=== PATIENT | male | born 1945 | race Caucasian/White ===

== ENCOUNTER → 2023-07-31 11:45 | Outpatient (REF) | payer OTHER, SELFPAY | LOC: PAVMRI 11:45 | PROVIDERS: ATTENDING PHYSICIAN Otolaryngology; FAMILY PHYSICIAN Family Medicine | DX: H93.19 Tinnitus, unspecified ear (principal) | CPT/HCPCS: 70553; A9575 ==

== ENCOUNTER → 2024-04-18 06:40 | Day surgery (SDC) | payer OTHER, SELFPAY | LOC: GI 06:40 | PROVIDERS: ATTENDING PHYSICIAN Internal Medicine | DX: Z12.11 Encounter for screening for malignant neoplasm of colon (principal); K64.9 Unspecified hemorrhoids; K57.30 Diverticulosis of large intestine without perforation or abscess without bleeding; Z86.0100 Personal history of colon polyps, unspecified | CPT/HCPCS: G0105 ==

== ENCOUNTER 2024-05-12 18:25 | Emergency (ER) | payer OTHER, SELFPAY ==
[2024-05-12] VITALS (20 sets, daily range): BP systolic 121–153; BP diastolic 56–77; BMI 25.8
[2024-05-12] MEDS: DILAUDID 0.5 MG IV (18:38)
--- NOTE | 2024-05-12 18:40 | ED.MUSCINJ ---
HPI-Injury
<Evaristo Tinoco PA-C - Last Filed: 05/12/24 20:13>
General
Chief Complaint: Musculo-Skeletal Complaint
Source: patient
Exam Limitations: none
Time Seen by Provider: 05/12/24 18:27
History of Present Illness-Injury
Initial Injury comments:
78-year-old male presents via EMS from home with complaints of left hip pain. He states he bent over and felt a pop in his left hip. Since then he has been unable to bear weight. He feels a deformity. He had his left hip replaced couple years
ago. No prior dislocations. No other
Phy Exam
<Evaristo Tinoco PA-C - Last Filed: 05/12/24 20:13>
Physical Exam
Physical Exam:
General: Uncomfortable appearing male no acute respiratory distress
HEENT: Normocephalic atraumatic
Musculoskeletal exam: Left leg is shortened. There is a deformity noted on the lateral aspect of the hip. He is tender on the lateral hip.
Vascular: 2+ dorsalis pedis pulse left foot
Injury Course
<Evaristo Tinoco PA-C - Last Filed: 05/12/24 20:13>
Orders/Labs/Results
Orders:
Orders
05/12/24 18:33
HYDROmorphone [Dilaudid] 0.5 mg .ROUTE .STK-MED ONE
05/12/24 18:36
CR Hip - LT without Pel 1 Vw Urgent
Comment:
Reason For Exam: dislocation
05/12/24 18:38
HYDROmorphone [Dilaudid] 0.5 mg IV NOW STA
05/12/24 18:59
Propofol [Diprivan] 20 ml .ROUTE .STK-MED
05/12/24 19:23
CR Hip - LT without Pel 1 Vw Stat
Comment:
Reason For Exam: post reduction
<Jani Reagan, DO - Last Filed: 05/12/24 19:23>
Orders/Labs/Results
Orders:
Orders
05/12/24 18:33
HYDROmorphone [Dilaudid] 0.5 mg .ROUTE .STK-MED ONE
05/12/24 18:36
CR Hip - LT without Pel 1 Vw Urgent
Comment:
Reason For Exam: dislocation
05/12/24 18:38
HYDROmorphone [Dilaudid] 0.5 mg IV NOW STA
05/12/24 18:59
Propofol [Diprivan] 20 ml .ROUTE .STK-MED
05/12/24 19:23
CR Hip - LT without Pel 1 Vw Stat
Comment:
Reason For Exam: post reduction
Procedures
<Jani Reagan, DO - Last Filed: 05/12/24 19:23>
Moderate Sedation
ASA Risk Score: Class II
Chart and allergies reviewed: Yes
Consent for anesthesia obtained: Yes
Time out completed (validating right patient & procedure): Yes
Moderate Sedation Start Time(when first medication is given): 19:17
History of difficult intubation: No
Airway free of obstruction: Yes
Patient has a gag reflex: Yes
Patient is able to open mouth: Yes
Patient has no dentures: No
Patient has no loose teeth: Yes
Medication administered by Provider during Moderate Sedation: IV Propofol (mg)
Total dose administered: 75
Time drug administered: 19:17
Moderate Sedation Procedure End Time: 19:30
Comment: Time out at 1913
Joint/Fracture Reduction
Left Posterior Lateral Hip:
Indication for procedure:: Left Hip dislocation
Procedure completed by: Дмитрий Tinoco PA-C
Consent form signed: Yes
Joint reduced: with anesthesia sedation
Injury was: closed
Further treatement: needs re-check only
Post reduction exam: stable
Capillary Refill: normal
Normal distal neurovascular exam?: Yes
Peripheral Pulses: posterior tibial (left): 2+ and dorsalis pedis (left): 2+
<Evaristo Tinoco PA-C - Last Filed: 05/12/24 20:13>
MDM/Problems Addressed
Differential Diagnosis Includes:
Left hip pain after bending over and feeling a pop. Consider dislocation versus fracture versus strain
X-rays pending
<Evaristo Tinoco PA-C - Last Filed: 05/12/24 20:13>
*Critical Care Note
Total Time (30-74mins, 75-104mins- exclusive of procedures): Not Applicable
<Evaristo Tinoco PA-C - Last Filed: 05/12/24 20:13>
Update Note
Update Note:
Initial x-ray demonstrated that he superior hip dislocation. Written consent was obtained for moderate sedation and closed reduction left hip. Sedation performed by emergency room attending. The hip was reduced with hip flexion and longitudinal
traction with internal rotation. This reduced easily. Postreduction films demonstrated successful reduction. Knee immobilizer applied he was recovered from the sedation picked up by family member and discharged home
ED Attending Note
<Evaristo Tinoco PA-C - Last Filed: 05/12/24 20:13>
-
Portions of this chart may have been created with voice recognition software.� Occasional wrong word or��sound alike� substitutions may have occurred due to the inherent limitations of voice recognition software.
<Jani Reagan DO - Last Filed: 05/12/24 19:23>
ED Attending Note
Patient seen and examined by attending physician: Yes
I performed the substantive portion of visit, reviewed & personally made and approve the management plan that is documented in note by myself or JACINDA.: Yes
ED Attending Note:
I have seen and evaluated the patient with a [id number] encounter. I have spoken to the advance practicer provider and involved in the medical history, the physical exam, medical decision making.
Evaluation and management service: agree unless noted differently below.
Results interpretation: agree unless noted differently below.
Focused HPI: 78-year-old male presenting with dislocated left hip. This occurred when he was bending over. Patient states the hip was done 2 years
Physical exam: Mildly uncomfortable. Left hip in a flexed position. It is neurovascularly intact
Medical Decision Making: Given the dislocated hip, patient signed consent for moderate sedation and reduction.
Discharge Plan
Departure
Patient Disposition: Home (Routine Discharge)
Date of Disposition: 05/12/24
Time of Disposition: 20:12
Patient with high blood pressure during this ER visit?: No
Discharge Problem:
Dislocation of left hip
Instructions: Hip Dislocation (DC), MODERATE SEDATION ADULT
Prescriptions:
No Action
loratadine-pseudoephedrine 240 MG/10 MG tablet extended release 24 hr
1 tab PO DAILY
omeprazole 20 MG capsule,delayed release(DR/EC)
20 mg PO DAILY
tadalafil [Cialis] 5 MG tablet
5 mg PO DAILY
hydrocodone-acetaminophen 1 TABLET tablet
1 tab PO Q6HPRN PRN (Reason: moderate-severe pain) Qty: 30 0RF
Rx Instructions:
Dx total joint replacement
ongoing therapy
1 tab moderate pain or 2 if pain severe
celecoxib 200 MG capsule
200 mg PO DAILY Qty: 30 0RF
Rx Instructions:
Take with food.
Do not take within 2 hours of Aspirin post-op.
ondansetron HCl 4 MG tablet
4 mg PO Q6HPRN PRN (Reason: nausea) Qty: 20 0RF
Rx Instructions:
Take 1/2 hour prior to [place] if experiencing recurrent nausea.
mupirocin 1 APPLIC ointment
1 applic intranasal BID Qty: 1 0RF
Patient Comments:
last dose was 02/13
acetaminophen 325 MG tablet
650 mg PO Q4HPRN PRN (Reason: mild pain) Qty: 60 0RF
Rx Instructions:
Do not exceed >4000 mg daily while on [place].
1 [place] tab = 325 mg of Tylenol.
docusate sodium 100 MG capsule
100 mg PO BID Qty: 30 0RF
sennosides [senna] 8.6 MG capsule
8.6 mg PO BID Qty: 30 0RF
magnesium hydroxide 30 ML suspension
30 ml PO HSPRN PRN (Reason: constipation) Qty: 7 0RF
Rx Instructions:
Use as needed for constipation unrelieved by Colace and Sennokot.
aspirin 325 MG tablet
325 mg PO DAILY Qty: 0 0RF
Patient Comments:
325 mg Aspirin
Rx Instructions:
Take 325 mg daily x4 weeks for blood clot prevention.
losartan 25 MG tablet
50 mg PO DAILY Qty: 0 0RF
Rx Instructions:
Hold if systolic blood pressure <130 while on [place].
Activity Restrictions/Additional Instructions:
Use the brace when ambulating. Follow-up with your orthopedic doctor. Return if needed
Interventions
Interventions:
*Risk Screen - Suicide Last Done: 05/12/24 18:35
*General Assessment Last Done: 05/12/24 18:35
*Neglect/Abuse Screening Last Done: 05/12/24 18:35
ED- Fall Risk Assessment Last Done: 05/12/24 18:51
*ED COVID-19 Vaccine History Last Done: 05/12/24 18:29
ED-Musculoskeletal Assessment Last Done: 05/12/24 18:51
Discharge Date and Time
Print Language: DIVEHI
== END 2024-05-12 20:31 | disposition home or self-care (01) ==
LOC: EMR 18:25
PROVIDERS: EMERGENCY PHYSICIAN Student in an Organized Health Care Education/Training Program; FAMILY PHYSICIAN Family Medicine
DX: T84.021A Dislocation of internal left hip prosthesis, initial encounter (principal); Y79.2 Prosthetic and other implants, materials and accessory orthopedic devices associated with adverse incidents
CPT/HCPCS: 27265; 99152; 99285; 96374; 73501

== ENCOUNTER 2024-11-21 16:27 | Emergency (ER) | payer OTHER, SELFPAY ==
[2024-11-21] VITALS (15 sets, daily range): BP systolic 145–176; BP diastolic 78–104; BMI 27.1
--- NOTE | 2024-11-21 17:00 | ED.MUSCINJ ---
HPI-Injury
<Evaristo Tinoco PA-C - Last Filed: 11/21/24 18:56>
General
Chief Complaint: Musculo-Skeletal Complaint
Source: patient
Exam Limitations: none
Time Seen by Provider: 11/21/24 16:53
History of Present Illness-Injury
Initial Injury comments:
79-year-old male presents complaining of left hip pain. He states he bent over to untangle his dog's leash and he felt his hip pop. He has a history of left hip replacement. He has dislocated his hip once in the past and this feels very similar.
Brought here by EMS. No other complaints at this time
Phy Exam
<Evaristo Tinoco PA-C - Last Filed: 11/21/24 18:56>
Physical Exam
Physical Exam:
General: Well-appearing male no acute respiratory distress
HEENT: Normocephalic atraumatic
Musculoskeletal exam: Left hip is held in flexion and slight internal rotation
Vascular: 2+ DP pulse left foot
Neurologic: Good sensation left foot
Injury Course
<Evaristo Tinoco PA-C - Last Filed: 11/21/24 18:56>
Orders/Labs/Results
Orders:
Orders
11/21/24 16:57
CR Hip - LT without Pel 1 Vw Urgent
Comment:
Reason For Exam: dislocation
11/21/24 17:08
Morphine Sulfate 4 mg .ROUTE .STK-MED ONE
11/21/24 17:10
Morphine Sulfate 4 mg IV NOW STA
11/21/24 17:15
Propofol [Diprivan] 20 ml .ROUTE .STK-MED
11/21/24 17:51
CR Hip - LT without Pel 1 Vw Urgent
Comment:
Reason For Exam: post reduction
<Dimas Hensley MD - Last Filed: 11/21/24 18:13>
Orders/Labs/Results
Orders:
Orders
11/21/24 16:57
CR Hip - LT without Pel 1 Vw Urgent
Comment:
Reason For Exam: dislocation
11/21/24 17:08
Morphine Sulfate 4 mg .ROUTE .STK-MED ONE
11/21/24 17:10
Morphine Sulfate 4 mg IV NOW STA
11/21/24 17:15
Propofol [Diprivan] 20 ml .ROUTE .STK-MED
11/21/24 17:51
CR Hip - LT without Pel 1 Vw Urgent
Comment:
Reason For Exam: post reduction
Procedures
<Evaristo Tinoco PA-C - Last Filed: 11/21/24 18:56>
Moderate Sedation
ASA Risk Score: Class II
Chart and allergies reviewed: Yes
Consent for anesthesia obtained: Yes
Time out completed (validating right patient & procedure): Yes
Moderate Sedation Start Time(when first medication is given): 17:49
History of difficult intubation: No
Airway free of obstruction: Yes
Patient has a gag reflex: Yes
Patient is able to open mouth: Yes
Patient has no dentures: Yes
Patient has no loose teeth: Yes
Medication administered by Provider during Moderate Sedation: IV Propofol (mg)
Total dose administered: 100
Time drug administered: 17:49
Moderate Sedation Procedure End Time: 18:00
<Evaristo Tinoco PA-C - Last Filed: 11/21/24 18:56>
MDM/Problems Addressed
Differential Diagnosis Includes:
Left hip pain. Likely dislocation of prosthetic hip replacement. Consider fracture. X-rays pending
<Evaristo Tinoco PA-C - Last Filed: 11/21/24 18:56>
*Critical Care Note
Total Time (30-74mins, 75-104mins- exclusive of procedures): Not Applicable
<Evaristo Tinoco PA-C - Last Filed: 11/21/24 18:56>
Update Note
Update Note:
Initial x-rays demonstrated hip dislocation of the left side. Written consent obtained for moderate sedation and closed reduction. Moderate sedation performed by emergency room attending. Total of 100 mg of propofol were used which provided
adequate sedation. The hip was then reduced by myself using hip flexion longitudinal traction and internal rotation. A palpable was felt. Postreduction films were obtained which demonstrated successful reduction. The patient recovered from
anesthesia and was discharged home in the company of his friend.
ED Attending Note
<Evaristo Tinoco PA-C - Last Filed: 11/21/24 18:56>
-
Portions of this chart may have been created with voice recognition software.� Occasional wrong word or��sound alike� substitutions may have occurred due to the inherent limitations of voice recognition software.
<Dimas Hensley MD - Last Filed: 11/21/24 18:13>
ED Attending Note
Patient seen and examined by attending physician: Yes
ED Attending Note:
I have seen and evaluated the patient with a [id number] encounter. I have spoken to the advance practicer provider and involved in the medical history, the physical exam, medical decision making.
Evaluation and management service: agree unless noted differently below.
Results interpretation: agree unless noted differently below.
Focused HPI: 79-year-old male with history as noted presents for evaluation of left hip pain. Patient was bending over and felt hip pop out. 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
hip dislocation. EMS was called to bring her to the hospital, he was given fentanyl via IV from EMS.
Physical exam: Awake and alert, left leg is shortened and held in flexion; strong pulses throughout left lower extremity. No other signs of acute trauma.
Medical Decision Makin-year-old male presents with left hip pain consistent with prior dislocations. X-ray confirmed that he has a dislocation of his left hip prosthesis. Will plan for reduction under moderate sedation.
Dislocated hip was successfully reduced under sedation. Will observe status post rotation plan for discharge. Patient was placed in a knee immobilizer. Follow-up with orthopedist as an outpatient.
Discharge Plan
Departure
Patient Disposition: Home (Routine Discharge)
Date of Disposition: 11/21/24
Time of Disposition: 18:52
Patient with high blood pressure during this ER visit?: No
Discharge Problem:
Dislocation of hip, left, closed
Instructions: MODERATE SEDATION ADULT
Prescriptions:
No Action
loratadine-pseudoephedrine 240 MG/10 MG tablet extended release 24 hr
1 tab PO DAILY
omeprazole 20 MG capsule,delayed release(DR/EC)
20 mg PO DAILY
tadalafil [Cialis] 5 MG tablet
5 mg PO DAILY
hydrocodone-acetaminophen 1 TABLET tablet
1 tab PO Q6HPRN PRN (Reason: moderate-severe pain) Qty: 30 0RF
Rx Instructions:
Dx total joint replacement
ongoing therapy
1 tab moderate pain or 2 if pain severe
celecoxib 200 MG capsule
200 mg PO DAILY Qty: 30 0RF
Rx Instructions:
Take with food.
Do not take within 2 hours of Aspirin post-op.
ondansetron HCl 4 MG tablet
4 mg PO Q6HPRN PRN (Reason: nausea) Qty: 20 0RF
Rx Instructions:
Take 1/2 hour prior to [place] if experiencing recurrent nausea.
mupirocin 1 APPLIC ointment
1 applic intranasal BID Qty: 1 0RF
Patient Comments:
last dose was 02/13
acetaminophen 325 MG tablet
650 mg PO Q4HPRN PRN (Reason: mild pain) Qty: 60 0RF
Rx Instructions:
Do not exceed >4000 mg daily while on [place].
1 [place] tab = 325 mg of Tylenol.
docusate sodium 100 MG capsule
100 mg PO BID Qty: 30 0RF
sennosides [senna] 8.6 MG capsule
8.6 mg PO BID Qty: 30 0RF
magnesium hydroxide 30 ML suspension
30 ml PO HSPRN PRN (Reason: constipation) Qty: 7 0RF
Rx Instructions:
Use as needed for constipation unrelieved by Colace and Sennokot.
aspirin 325 MG tablet
325 mg PO DAILY Qty: 0 0RF
Patient Comments:
325 mg Aspirin
Rx Instructions:
Take 325 mg daily x4 weeks for blood clot prevention.
losartan 25 MG tablet
50 mg PO DAILY Qty: 0 0RF
Rx Instructions:
Hold if systolic blood pressure <130 while on [place].
Referrals:
Tali Antoine DO [Family Provider, Family Practice]
Activity Restrictions/Additional Instructions:
Please return here for worsening symptoms. Follow-up with your orthopedic doctor otherwise
Interventions
Interventions:
*Risk Screen - Suicide Last Done: 11/21/24 16:37
*General Assessment Last Done: 11/21/24 16:37
*Neglect/Abuse Screening Last Done: 11/21/24 16:37
*ED- Fall Risk Assessment Last Done: 11/21/24 16:37
*ED COVID-19 Vaccine History Last Done: 11/21/24 16:37
ED-Musculoskeletal Assessment Last Done: 11/21/24 16:37
Discharge Date and Time
Print Language: MONGOLIAN
[2024-11-21] MEDS: MORPHINE SULFATE 4 MG IV (17:12)
== END 2024-11-21 19:09 | disposition home or self-care (01) ==
LOC: EMR 16:27
PROVIDERS: EMERGENCY PHYSICIAN Emergency Medicine; FAMILY PHYSICIAN Family Medicine
DX: T84.021A Dislocation of internal left hip prosthesis, initial encounter (principal); X58.XXXA Exposure to other specified factors, initial encounter; M25.552 Pain in left hip; Z96.642 Presence of left artificial hip joint; Z79.82 Long term (current) use of aspirin
CPT/HCPCS: 99285; 27265; 96374; 99152; 73501

== ENCOUNTER 2024-12-21 09:19 | Emergency (ER) | payer OTHER, SELFPAY ==
[2024-12-21] VITALS (18 sets, daily range): BP systolic 103–174; BP diastolic 55–115; BMI 26.6
--- NOTE | 2024-12-21 09:34 | ED.MUSCINJ ---
HPI-Injury
<Evaristo Tinoco PA-C - Last Filed: 12/21/24 12:42>
General
Chief Complaint: Musculo-Skeletal Complaint
Source: patient
Exam Limitations: none
Time Seen by Provider: 12/21/24 09:25
History of Present Illness-Injury
Initial Injury comments:
79-year-old male with history of left hip replacement presents with left hip pain after bending over to clip his nails. He felt a pop similar to what he is felt in the past with prior dislocations. He was here 1 month ago for the same. He
followed up with orthopedics and has been doing physical therapy and has been doing well but he was just getting out of the shower clipping his nails and did not have his hip brace on at that time.
Phy Exam
<Evaristo Tinoco PA-C - Last Filed: 12/21/24 12:42>
Physical Exam
Physical Exam:
General: Well-appearing male no acute respiratory distress
Musculoskeletal exam: Left hip deformity noted with shortened and internally rotated leg.
Heart: Regular rate and rhythm
Lungs: Clear no wheeze
Injury Course
<Evaristo Tinoco PA-C - Last Filed: 12/21/24 12:42>
Orders/Labs/Results
Orders:
Orders
12/21/24 09:29
CR Hip - LT without Pel 1 Vw Urgent
Comment:
Reason For Exam: deformity, possible dislocation
12/21/24 09:43
HYDROmorphone [Dilaudid] 0.5 mg IV NOW STA
12/21/24 10:41
Propofol [Diprivan] 20 ml .ROUTE .STK-MED
12/21/24 10:54
Hip, Left 1 View [CR Hip - LT without Pel 1 Vw] Urgent
Comment:
Reason For Exam: post reduction
<Rafael Rose DO - Last Filed: 12/21/24 11:18>
Orders/Labs/Results
Orders:
Orders
12/21/24 09:29
CR Hip - LT without Pel 1 Vw Urgent
Comment:
Reason For Exam: deformity, possible dislocation
12/21/24 09:43
HYDROmorphone [Dilaudid] 0.5 mg IV NOW STA
12/21/24 10:41
Propofol [Diprivan] 20 ml .ROUTE .STK-MED
12/21/24 10:54
Hip, Left 1 View [CR Hip - LT without Pel 1 Vw] Urgent
Comment:
Reason For Exam: post reduction
Procedures
<Evaristo Tinoco PA-C - Last Filed: 12/21/24 12:42>
Moderate Sedation
ASA Risk Score: Class II
Chart and allergies reviewed: Yes
Consent for anesthesia obtained: Yes
Time out completed (validating right patient & procedure): Yes
Moderate Sedation Start Time(when first medication is given): 10:50
History of difficult intubation: No
Airway free of obstruction: Yes
Patient has a gag reflex: Yes
Patient is able to open mouth: Yes
Patient has no dentures: Yes
Patient has no loose teeth: Yes
Medication administered by Provider during Moderate Sedation: IV Propofol (mg)
Total dose administered: 150
Time drug administered: 10:50
Moderate Sedation Procedure End Time: 11:03
<Evaristo Tinoco PA-C - Last Filed: 12/21/24 12:42>
MDM/Problems Addressed
Differential Diagnosis Includes:
Left hip pain and deformity. Likely dislocation. X-ray pending.
<Evaristo Tinoco PA-C - Last Filed: 12/21/24 12:42>
*Pulse Oximetry
SaO2: 97
Oxygen Mode of Delivery: Room air
Patient hypoxic: no
*Critical Care Note
Total Time (30-74mins, 75-104mins- exclusive of procedures): Not Applicable
<Evaristo Tinoco PA-C - Last Filed: 12/21/24 12:42>
Update Note
Update Note:
Yet the patient had a initial x-ray with demonstrated dislocation of the prosthesis of the left hip. Written consent obtained for moderate sedation and reduction of the left dislocation. Sedation performed by emergency room attending. A total of
150 mg of propofol were required. The hip was then reduced with the knee in flexion and hip in flexion and anterior traction with internal rotation. A palpable clunk was felt. Postreduction films demonstrate successful reduction
ED Attending Note
<Evaristo Tinoco PA-C - Last Filed: 12/21/24 12:42>
-
Portions of this chart may have been created with voice recognition software.� Occasional wrong word or��sound alike� substitutions may have occurred due to the inherent limitations of voice recognition software.
<Rafael Rose, - Last Filed: 12/21/24 11:18>
ED Attending Note
Patient seen and examined by attending physician: Yes
ED Attending Note:
I have reviewed and agree with history and treatment plan by Дмитрий Tinoco. My exam revealed left leg internally lower rotated. Patient tolerated sedation and reduction procedures well. I was present for entire procedure. Stable for discharge.
Discharge Plan
Departure
Patient Disposition: Home (Routine Discharge)
Date of Disposition: 12/21/24
Time of Disposition: 12:40
Patient with high blood pressure during this ER visit?: No
Discharge Problem:
Dislocation, hip
Instructions: MODERATE SEDATION ADULT
Prescriptions:
No Action
loratadine-pseudoephedrine 240 MG/10 MG tablet extended release 24 hr
1 tab PO DAILY
omeprazole 20 MG capsule,delayed release(DR/EC)
20 mg PO DAILY
tadalafil [Cialis] 5 MG tablet
5 mg PO DAILY
hydrocodone-acetaminophen 1 TABLET tablet
1 tab PO Q6HPRN PRN (Reason: moderate-severe pain) Qty: 30 0RF
Rx Instructions:
Dx total joint replacement
ongoing therapy
1 tab moderate pain or 2 if pain severe
celecoxib 200 MG capsule
200 mg PO DAILY Qty: 30 0RF
Rx Instructions:
Take with food.
Do not take within 2 hours of Aspirin post-op.
ondansetron HCl 4 MG tablet
4 mg PO Q6HPRN PRN (Reason: nausea) Qty: 20 0RF
Rx Instructions:
Take 1/2 hour prior to [place] if experiencing recurrent nausea.
mupirocin 1 APPLIC ointment
1 applic intranasal BID Qty: 1 0RF
Patient Comments:
last dose was 02/13
acetaminophen 325 MG tablet
650 mg PO Q4HPRN PRN (Reason: mild pain) Qty: 60 0RF
Rx Instructions:
Do not exceed >4000 mg daily while on [place].
1 [place] tab = 325 mg of Tylenol.
docusate sodium 100 MG capsule
100 mg PO BID Qty: 30 0RF
sennosides [senna] 8.6 MG capsule
8.6 mg PO BID Qty: 30 0RF
magnesium hydroxide 30 ML suspension
30 ml PO HSPRN PRN (Reason: constipation) Qty: 7 0RF
Rx Instructions:
Use as needed for constipation unrelieved by Colace and Sennokot.
aspirin 325 MG tablet
325 mg PO DAILY Qty: 0 0RF
Patient Comments:
325 mg Aspirin
Rx Instructions:
Take 325 mg daily x4 weeks for blood clot prevention.
losartan 25 MG tablet
50 mg PO DAILY Qty: 0 0RF
Rx Instructions:
Hold if systolic blood pressure <130 while on [place].
Referrals:
Tali Antoine DO [Family Provider, Family Practice]
Activity Restrictions/Additional Instructions:
Continue to use your brace. Return here if worse. Follow-up with orthopedic doctor
Interventions
Interventions:
*Risk Screen - Suicide Last Done: 12/21/24 09:24
*General Assessment Last Done: 12/21/24 09:24
*Neglect/Abuse Screening Last Done: 12/21/24 09:24
*ED- Fall Risk Assessment Last Done: 12/21/24 09:39
*ED COVID-19 Vaccine History Last Done: 12/21/24 09:39
ED-Musculoskeletal Assessment Last Done: 12/21/24 09:26
Discharge Date and Time
Print Language: MONGOLIAN
[2024-12-21] MEDS: DILAUDID 0.5 MG IV (09:54)
== END 2024-12-21 14:10 | disposition home or self-care (01) ==
LOC: EMR 09:19
PROVIDERS: EMERGENCY PHYSICIAN Emergency Medicine; FAMILY PHYSICIAN Family Medicine
DX: T84.021A Dislocation of internal left hip prosthesis, initial encounter (principal); X58.XXXA Exposure to other specified factors, initial encounter; Y79.2 Prosthetic and other implants, materials and accessory orthopedic devices associated with adverse incidents; M19.90 Unspecified osteoarthritis, unspecified site; D64.9 Anemia, unspecified; Z79.82 Long term (current) use of aspirin; Z96.642 Presence of left artificial hip joint
CPT/HCPCS: 99285; 27265; 96374; 99152; 73501

== ENCOUNTER → 2025-01-17 12:42 | Outpatient (REF) | payer OTHER, SELFPAY | LOC: HWRAD 12:42 | PROVIDERS: ATTENDING PHYSICIAN Physician Assistant; FAMILY PHYSICIAN Family Medicine | DX: Z96.642 Presence of left artificial hip joint (principal) | CPT/HCPCS: 73700 ==

== ENCOUNTER → 2025-02-06 08:22 | Outpatient (REF) | payer OTHER, SELFPAY | LOC: HWRCS 08:22 | PROVIDERS: ATTENDING PHYSICIAN Internal Medicine Cardiovascular Disease; FAMILY PHYSICIAN Family Medicine | DX: Z01.810 Encounter for preprocedural cardiovascular examination (principal); I10 Essential (primary) hypertension; I45.10 Unspecified right bundle-branch block | CPT/HCPCS: 78452; 93017; A9500; J2785 ==